=== PATIENT | female | born 1970 | race Caucasian/White ===

== ENCOUNTER → 2019-12-06 11:25 | Outpatient (CLI) | payer OTHER, SELFPAY ==
--- NOTE | ~2019-12-06 | MM_ITS ---
EXAMINATION: MM screening [facility] BI w uriel HISTORY: Screening mammogram TECHNIQUE: Craniocaudal and mediolateral oblique 3-D tomosynthesis images were obtained and synthetic 2-D images were generated. CAD analysis was submitted and interpreted. COMPARISON: 10/15/2018, 09/29/2017, 08/28/2016 BREAST PARENCHYMAL COMPOSITION: The breasts are heterogeneously dense, which may obscure small masses . FINDINGS: There is no evidence of suspicious mass, calcification, or architectural distortion to sugg est malignancy in either breast. There has been no suspicious interval change. IMPRESSION: 1. No mammographic evidence of malignancy. 2. Recommend routine screening mammography in one year. BI-RADS Category 1: Negative Reviewed, dictated and finalized at location A. [employer]
== END ==
PROVIDERS: Visit Provider Obstetrics & Gynecology
DX: Z12.31 Encounter for screening mammogram for malignant neoplasm of breast (principal)
CPT/HCPCS: 77063; 77067

== ENCOUNTER 2020-09-11 00:21 | Outpatient (CLI) | payer OTHER, SELFPAY ==
[2020-09-11 19:48] LABS: SARS-CoV-2 RNA PCR Positive
== END 2020-09-11 00:22 | disposition home or self-care (01) ==
LOC: ANHCOVIDDT 00:21
PROVIDERS: Visit Provider Obstetrics & Gynecology
DX: U07.1 COVID-19 (principal)
CPT/HCPCS: 87635; C9803; U0003

== ENCOUNTER 2020-12-07 01:48 | Day surgery (SDC) | payer OTHER, SELFPAY ==
[2020-08-31 13:33] VITALS: BMI 25.7
[2020-11-30 14:34] VITALS: BMI 25.7
[2020-12-07 12:57] VITALS: BP 130/84; PULSE 83; RESP 20; TEMP 37.2
--- NOTE | 2020-12-07 13:03 | P.PNAN_ITS ---
Anes - Initial Pre Proc Eval Procedure: Operation Date: 12/07/20 15:00 Proposed Procedures p Hysteroscopy Dilation and Curettage - Erick Bishop MD Date/Time: 12/07/20 13:03 Surgeon: Erick Bishop MD Pre Op Diagnosis: Abnormal Uterine Bleeding Patient Data Age: 50 Gender: F Height: 5 ft 4 in Weight: 68.1 kg Allergies Allergy/AdvReac Type Severity Reaction Status Date / Time No Known Allergies Allergy Verified 12/07/20 13:01 Home Medications Medication Instructions Recorded Confirmed Type cholecalciferol (vitamin D3) 2,000 mcg PO DAILY 08/31/20 12/07/20 History [Vitamin D3] Daily Multivitamin with Iron 1 tablet PO DAILY 11/30/20 12/07/20 History Patient hx anesthesia problems: none Family hx anesthesia problems: none [facility] Past Medical History Medical History (Updated 12/07/20 @ 13:03 by John Elias MD) Asthma Social History Social History Smoking status: Never smoker Living arrangements: with family Spiritual care concerns: No Anes - Eval Final PreProcedure Day of Procedure 12/07/20 13:03 Patient weight: normal Heart: regular rate and rhythm Lungs: clear to auscultation Airway: Mallampati scale class II Neurological: alert and oriented Last oral intake: >/= 8 hours ASA classification: II Emergent: no Anesthetic plan: proceed Anesthesia type and monitoring: general GIVS and standard monitoring Informed Consent: The patient's anesthetic plan and its attendant risks and b enefits were discussed with the patient/family/POA. Questions were solicited and answers provided to the satisfaction of the patient/family/POA.
[2020-12-07] MEDS: ACETAMINOPHEN 500 MG TABLET 1000 MG PO (13:13)
[2020-12-07] MEDS: LACTATED RINGERS 1,000 ML 30 ML IV CONT (13:14)
--- NOTE | 2020-12-07 14:08 | PM.HPGS ---
History of Present Illness History of Present Illness Consent: Risks, benefits, and alternatives have been discussed and questions answered. Patient agrees to proceed with procedure. Chief complaint: Abnormal Uterine Bleeding Narrative: Floresita Mcdonough is a 50 year old female presented to the office with some abnormal uterine bleeding. Patient reports bleeding for greater than 16 days in august and then restarting a cycle 1 week later. ultrasound showed a thickened endometrium PMFSH Past Medical History Medical History Asthma Social History Social History Smoking status: Never smoker Living arrangements: with family Spiritual care concerns: No Meds Home Medications and Allergies Home Medications Medication Instructions Recorded Confirmed Type cholecalciferol (vitamin D3) 2,000 mcg PO DAILY 08/31/20 12/07/20 History [Vitamin D3] Daily Multivitamin with Iron 1 tablet PO DAILY 11/30/20 12/07/20 History Allergies Allergy/AdvReac Type Severity Reaction Status Date / Time No Known Allergies Allergy Verified 12/07/20 13:01 Vital Signs Vital Signs - 24 hr 12/07/20 12:57 Temperature 37.2 C Pulse Rate 83 Respiratory Rate 20 Blood Pressure 130/84 Exam Const: General: healthy appearing Resp: Effort & Inspection: normal respiratory effort Cardio: Rate: regular rate GI: Other: soft and nontender pelvic: mobile uterus. : Bimanual exam- vagina & uterus: normal bimanual exam and uterine mobility normal Assessment and Plan Assessment and plan (1) Abnormal uterine bleeding (AUB): Code(s): N93.9 - Abnormal uterine and vaginal bleeding, unspecified Status: Acute Assessment and Plan: scheduled for a hysteroscopy dilation and curettage. Risk and benefits reviewed with patient in detail.
--- NOTE | 2020-12-07 14:13 | WPDHPUPDATE1 ---
History and Physical Update Update Date/Time: 12/07/20 14:13 History and Physical has been reviewed, including an updated exam of the patient. There are NO changes in the patient's condition. Risks, benefits, and alternatives have been discussed and questions answered. Patient agrees to proceed with procedure.
[2020-12-07] MEDS: LIDOCAINE HCL 1% LOCAL INJ 20 ML VIAL 10 ML INFILTRATE (14:55)
[2020-12-07] MEDS: KETOROLAC 30 MG/ML VIAL (*BKC) IV PUSH (15:06)
--- NOTE | 2020-12-07 15:07 | SUR.OPER ---
650ml ns in, 650ml ns out
[2020-12-07 15:20] VITALS: BP 152/89; PULSE 67; RESP 12; O2SAT 96
--- NOTE | 2020-12-07 15:39 | P.OP_ITS ---
Procedure Note - Detailed Date of procedure: 12/07/20 Pre-op diagnosis: Abnormal Uterine Bleeding Post-op diagnosis: same Procedure performed: hysteroscopy dilation and curettage Description of procedure: the patient was taken to the operating room with IV running. She was prepped and draped in a normal sterile fashion a bivalve speculum was placed into the vagina. Anterior lip of the cervix was grasped with a single-tooth tenaculum. The cervix was injected at the 2 and 10:00 a.m. positions with 5cc of lidocaine bilaterally. The cervix was noted to be stenotic and was serially dilated with Hegar dilators to a 7 uterus was then dany nded to 7cm. The hysteroscope was introduced into the uterine cavity the hysteroscope was removed. A sharp curettage was performed in all 4 quadrants to a gritty texture. Endometrial tissue sampling was sent to pathology. Sponge lap and needle counts were correct x2 the tenaculum site was noted to be hemostatic and patient was taken to recovery room in stable condition. Anesthesia: MAC and local Surgeon: Erick Bishop MD Estimated blood loss (mL): 10 Drains: No Packing: No Pathology: yes Complications: None Condition: stable Disposition: PACU
[2020-12-07 15:54] VITALS: BP 155/83; PULSE 63; RESP 14
== END 2020-12-07 16:25 | disposition home or self-care (01) ==
PROVIDERS: PCP Family Medicine; Visit Provider Obstetrics & Gynecology
PROC: 0U5B8ZZ Destruction of Endometrium, Via Natural or Artificial Opening Endoscopic (ICD-10-PCS; CPT 58563; principal; 2020-12-07 15:00)
DX: N93.9 Abnormal uterine and vaginal bleeding, unspecified (principal); J45.909 Unspecified asthma, uncomplicated
CPT/HCPCS: 58558; 88305; A9270; J1885; J2250; J2405; J2704; J3010; J7030; J7120

== ENCOUNTER → 2021-01-11 12:24 | Outpatient (CLI) | payer OTHER, SELFPAY ==
--- NOTE | ~2021-01-11 | MM_ITS ---
EXAMINATION: MM screening [facility] BI w uriel HISTORY: Screening mammogram TECHNIQUE: Craniocaudal and mediolateral oblique 3-D tomosynthesis images were obtained and synthetic 2-D images were generated. CAD analysis was submitted and interpreted. COMPARISON: 12/06/2019, 10/15/2018, 09/29/2017 bilateral digital screening mammogram examinations BREAST PARENCHYMAL COMPOSITION: The breasts are heterogeneously dense, which may obscure small masses . FINDINGS: There is no evidence of suspicious mass, calcification, or architectural distortion to sugg est malignancy in either breast. There has been no suspicious interval change. IMPRESSION: 1. No mammographic evidence of malignancy. 2. Recommend routine screening mammography in one year. BI-RADS Category 1: Negative Reviewed, dictated and finalized at location A. [employer]
== END ==
PROVIDERS: Visit Provider Obstetrics & Gynecology
DX: Z12.31 Encounter for screening mammogram for malignant neoplasm of breast (principal)
CPT/HCPCS: 77063; 77067

== ENCOUNTER → 2022-05-28 10:48 | Outpatient (CLI) | payer OTHER, SELFPAY ==
--- NOTE | ~2022-05-28 | MM_ITS ---
EXAMINATION: MM screening [facility] BI w uriel HISTORY: Screening TECHNIQUE: Craniocaudal and mediolateral oblique 3-D tomosynthesis images were obtained and synthetic 2-D images were generated. CAD analysis was submitted and interpreted. COMPARISON: 01/11/2021, 12/2019, 10/15/2018 bilateral screening mammogram examinations BREAST PARENCHYMAL COMPOSITION: The breasts are heterogeneously dense, which may obscure small masses . FINDINGS: There is no evidence of suspicious mass, calcification, or architectural distortion to sugg est malignancy in either breast. There has been no suspicious interval change. IMPRESSION: 1. No mammographic evidence of malignancy. 2. Recommend routine screening mammography in one year. BI-RADS Category 1: Negative Reviewed, dictated and finalized at location A.
== END ==
PROVIDERS: PCP Family Medicine; Visit Provider Obstetrics & Gynecology Gynecology
DX: Z12.31 Encounter for screening mammogram for malignant neoplasm of breast (principal)
CPT/HCPCS: 77063; 77067

== ENCOUNTER → 2023-06-26 10:50 | Outpatient (CLI) | payer OTHER, SELFPAY ==
--- NOTE | ~2023-06-26 | MM_ITS ---
EXAMINATION: MM screening [facility] BI w uriel HISTORY: Screening mammogram TECHNIQUE: Craniocaudal and mediolateral oblique 3-D tomosynthesis images were obtained and synthetic 2-D images were generated. CAD analysis was submitted and interpreted. COMPARISON: 05/28/2022, 01/11/2021, 12/06/2019 BREAST PARENCHYMAL COMPOSITION: The breasts are heterogeneously dense, which may obscure small masses . FINDINGS: No suspicious mass, calcification, or architectural distortion are identified in either ani ast to suggest malignancy. There has been no suspicious interval change. IMPRESSION: 1. No mammographic evidence of malignancy. 2. Recommend routine screening mammography in one year. BI-RADS Category 1: Negative Reviewed, dictated and finalized at location A.
== END ==
PROVIDERS: PCP Obstetrics & Gynecology Gynecology; Visit Provider Obstetrics & Gynecology Gynecology
DX: Z12.31 Encounter for screening mammogram for malignant neoplasm of breast (principal)
CPT/HCPCS: 77063; 77067

== ENCOUNTER 2024-03-07 00:34 | Day surgery (SDC) | payer OTHER, SELFPAY ==
[2024-03-01 12:53] VITALS: BMI 25.7
--- NOTE | 2024-03-01 13:08 | PC.NURSE ---
Report to the Outpatient Waiting Room, entrance under the green pavilion located off [facility], at time _0700 on date __03/07/24 . Planned Procedure Time: _0900 . Time changes happen often and if your time is changed the preop area will call you the afternoon before. - You and your visitor will be asked to self-screen and do not enter if you have any COVID symptoms. - A mask is optional within the hospital at this time. Patients may have clear liquids (water, carbonated beverages, clear teas, apple juice) until 3 hours prior to surgery with a maximum of 20 ounces. - No food from midnight until time of surgery - Infants may have breast milk until 4 hours before surgery, formula 6 hours prior to surgery. - Children will be allowed to drink immediately following surgery. If applicable, please bring a bottle or sippy cup to assist with drinking. Juice, water, soda, and popsicles are readily available. For infants on formula, please bring formula the day of surgery. Pacifiers are allowed. Take the following medications with a SIP of water the morning of surgery: _N/A DO NOT STOP ANY OF YOUR OTHER PRESCRIPTION MEDICATIONS PRIOR TO SURGERY ?EXCEPT THE FOLLOWING Medications to discontinue per physician ___Vitamin Date to take last dose____3 days prior Please no make-up, nail khmer, hairspray, perfume, deodorant, or body powder the day of surgery. No jewelry (including any body piercings) or valuables the day of surgery, leave them at home. Please take a shower or bath the night before, or the morning of, surgery with an antibacterial soap. Wear comfortable, loose fitting clothing. Children are encouraged to wear pajamas. - Jewelry must be removed prior to entering the operating room. Rings and piercings that are not removed may be cut off. - The hospital will not accept responsibility for valuables. - Please leave all valuables, including medications, at home the day of surgery. If you are going home after surgery, a licensed driver utility worker must drive you home. - NO public transportation without another adult if you receive anesthesia. - We recommend that an adult stay with you for 24 hours following discharge. - We also recommend that you do not drive, make important decision, drink alcoholic beverages, or take any drugs that were not prescribed by your health care provider for at least 24 hours after your discharge time. For Pediatric surgeries, we recommend two adults accompany the child home. Follow any additional instructions given to you from your surgeon. If you or anyone in your household have experienced Covid symptoms in the past week, please notify your surgeon or the nurse liaison at the phone number below for possible testing. Telephone instructions given to _Floresita and asked if any additional questions and then verbalized understanding. Patient advised to call surgeon office or pre surgery nurse liaison [phone] if any additional questions.
[2024-03-07 07:15] VITALS: BP 122/74; PULSE 78; RESP 16; TEMP 36.5; O2SAT 100
--- NOTE | 2024-03-07 07:25 | P.HP_ITS ---
History of Present Illness History of Present Illness Consent: Risks, benefits, and alternatives have been discussed and questions answered. Patient agrees to proceed with procedure. Chief complaint: MENORRHAGIA, RIGHT OVARIAN CYST Narrative: Floresita Mcdonough is a 53 year old female with worsening cycles. Patient had a very heavy cycle in December going through super tampons every 1-1/2 hours. In addition, she has bled for several weeks. Pelvic ultrasound revealed a complex ovarian mass and thickened endometrium. It was initially recommended to undergo hysteroscopy D&C and laparoscopy to evaluate the right ovary. Repeat ultrasound 6 weeks later (02/28) shows the cyst to now be a 2cm simple cyst therefore the laparoscopic portion of the case will be canceled. This was discussed in reviewed with the patient the day of surgery. Risks of infect ion, bleeding, perforation, and possible pathology are discussed. Patient voices understanding and agrees to proceed. Review of Systems Review of Systems: not repeated day of surgery; patient states no changes in status PMFSH Past Medical History Medical History (Updated 03/07/24 @ 07:31 by Edilia Jules MD) Asthma Surgical History Surgical History (Updated 03/07/24 @ 07:32 by Edilia Jules MD) History of hysteroscopy 2020 History of right knee surgery Social History Social History Smoking status: Never smoker Drinks per week: 3 Alcohol use details: social Living arrangements: with family Spiritual care concerns: No Meds Home Medications and Allergies Home Medications Medication Instructions Recorded Confirmed Type Daily Multivitamin with Iron 1 tablet PO DAILY 11/30/20 03/01/24 History norethindrone 1 mg-ethinyl 1 tablet PO DAILY 03/01/24 03/01/24 History estradiol 10 mcg (24)-iron 10 mcg(2) tablet (Lo Loestrin Fe) Allergies Allergy/AdvReac Type Severity Reaction Status Date / Time No Known Allergies Allergy Verified 03/01/24 12:54 Exam Const: General: healthy appearing and alert Orientation/consciousness: patient oriented x3 Resp: Effort & Inspection: normal respiratory effort : External Female Exam: normal external appearance Speculum Exam - Vagina: normal appearance of the vagina and normal vaginal discharge Speculum Exam - Cervix: normal appearance of the cervix Bimanual exam- vagina & uterus: uterine size normal and consistency normal Bimanual Exam- Adnexa, other: normal adnexae and No adnexal tenderness Neuro: General: patient oriented x3 Assessment and Plan Assessment and plan (1) Abnormal uterine bleeding (AUB): Code(s): N93.9 - Abnormal uterine and vaginal bleeding, unspecified Status: Acute Assessment and Plan: plan to proceed with D&C hysteroscopy
--- NOTE | 2024-03-07 07:25 | WPDHPUPDATE1 ---
History and Physical Update Update Date/Time: 03/07/24 07:25 History and Physical has been reviewed, including an updated exam of the patient. There are NO changes in the patient's condition. Risks, benefits, and alternatives have been discussed and questions answered. Patient agrees to proceed with procedure.
[2024-03-07] MEDS: LACTATED RINGERS 1,000 ML 30 ML IV CONT (07:40)
[2024-03-07] MEDS: ACETAMINOPHEN 500 MG TABLET 1000 MG PO (07:44)
--- NOTE | 2024-03-07 07:51 | WPDANESEPPF ---
Anes - Initial Pre Proc Eval Procedure: Operation Date: 03/07/24 09:00 Proposed Procedures p Laparoscopic Right Salpingo-Oophorectomy, Hysteroscopy Dilation and Curettage - Edilia Jules MD Date/Time: 03/07/24 07:51 Surgeon: Edilia Jules MD Pre Op Diagnosis: MENORRHAGIA, RIGHT OVARIAN CYST Patient Data Age: 53 Gender: F Height: 1.63 m Weight: 68.04 kg Allergies Allergy/AdvReac Type Severity Reaction Status Date / Time No Known Allergies Allergy Verified 03/01/24 12:54 Home Medications Medication Instructions Recorded Confirmed Type Daily Multivitamin with Iron 1 tablet PO DAILY 11/30/20 03/01/24 History norethindrone 1 mg-ethinyl 1 tablet PO DAILY 03/01/24 03/01/24 History estradiol 10 mcg (24)-iron 10 mcg(2) tablet (Lo Loestrin Fe) Patient hx anesthesia problems: none Family hx anesthesia problems: none Results Review: All pre-operative results and documents have been reviewed as part of the pre-operative evaluation. [facility] Past Medical History Medical History (Updated 03/07/24 @ 07:31 by Edilia Jules MD) Asthma Surgical History Surgical History History of hysteroscopy 2020 History of right knee surgery Social History Social History Smoking status: Never smoker Drinks per week: 3 Alcohol use details: social Living arrangements: with family Spiritual care concerns: No Anes - Eval Final PreProcedure Day of Procedure 03/07/24 07:51 Patient weight: normal Heart: regular rate and rhythm Lungs: clear to auscultation Airway: Mallampati scale class II Neurological: alert and oriented Last oral intake: >/= 8 hours ASA classification: II Emergent: no Anesthetic plan: proceed Anesthesia type and monitoring: general GIVS and standard monitoring Results Review: All pre-operative results and documents have been reviewed as part of the pre-operative evaluation. Informed Consent: The patient's anesthetic plan and its attendant risks and benefits were discussed with the patient/family/POA. Questions were solicited and answers provided to the satisfaction of the patient/family/POA.
[2024-03-07] MEDS: KETOROLAC 15 MG/ML VIAL (*BKC) IV PUSH (09:08)
--- NOTE | 2024-03-07 09:16 | P.OP_ITS ---
Procedure Note - Detailed Date of Procedure 03/07/24 Pre-op Diagnosis menorrhagia Post-op Diagnosis Same Procedure Performed D&C hysteroscopy Surgeon Edilia Jules MD Anesthesia MAC Findings The cervix is stenotic. The uterus sounds to 9cm and appears grossly secretory. Description of Procedure The patient is taken to the operating room and placed under anesthesia in the dorsal lithotomy position. She was prepped and draped in the usual sterile fashion. [place] speculum was placed in the vagina and cervix grasped on the anterior lip with a tenaculum. The external os is stenotic. The sound and the dilators will not pass. The os Finders are used and the cervix is able to be opened. Uterus is then sounded to 9cm. The diagnostic hysteroscope was placed and with the above-stated findings it is removed. The sharp OO curette is used to curette the endometrium until a good uterine cry was noted in all areas. All instruments are removed. Sponge, needle, and instrument counts are correct per the OR staff. The patient was awakened from anesthesia and taken to recovery in stable condition. Estimated Blood Loss 5 Drains No Packing No Pathology Yes ( Endometrial curettings) Complications No immediate complications Condition Stable Disposition PACU
[2024-03-07 09:18] VITALS: BP 136/73; PULSE 75; RESP 12; O2SAT 100
[2024-03-07 09:45] VITALS: BP 140/72; PULSE 68; RESP 14; O2SAT 97
[2024-03-07 10:00] VITALS: BP 151/68; PULSE 55; RESP 14
== END 2024-03-07 10:15 | disposition home or self-care (01) ==
PROVIDERS: PCP Hospitalist; Visit Provider Obstetrics & Gynecology Gynecology
PROC: 0UDB8ZZ Extraction of Endometrium, Via Natural or Artificial Opening Endoscopic (ICD-10-PCS; CPT 58558; principal; 2024-03-07 09:00)
DX: N92.0 Excessive and frequent menstruation with regular cycle (principal); J45.909 Unspecified asthma, uncomplicated; Z98.890 Other specified postprocedural states
CPT/HCPCS: 58558; 88305; A9270; J1885; J2250; J2704; J3010; J7120